=== PATIENT | male | born 1980 | race Caucasian/White ===

== ENCOUNTER 2016-07-29 20:21 | Inpatient (IN) | payer BC ==
[2016-07-29] MEDS ORDERED: NITROGLYCERINE 0.4 MG TAB SL STA (20:44)
[2016-07-29] MEDS ORDERED: ASPIRIN 325 MG TAB PO ONE (20:44)
[2016-07-29] MEDS ORDERED: NITROGLYCERINE 2 % OINTMENT PACK TOP STA (20:44)
[2016-07-29 20:54] LABS: AUTOMATED EOSINOPHIL 1.8 % (0-5); AUTOMATED NEUTROPHIL 72.2 % (45-76); MPV 8.7 fL (7.4-10.4)
--- NOTE | 2016-07-29 21:03 | EDPRACDOC ---
[id number] Seen by Provider: 07/29/16 20:40 Information Source: Patient Mode of Arrival: Car Home Medications: Home Medications No Home Medications 07/29/16 Allergies/Adverse Reactions: Allergies Allergy/AdvReac Type Severity Reaction Status Date / Time No Known Allergies Allergy Verified 08/07/14 03:33 - History of Present Illness Onset: Yesterday HPI: PT PRESENTS WITH SUBSTERNAL CHEST PAIN WITH ASSOCIATED SEVERELY ELEVATED BLOOD PRESSURES. PAIN IS WORSE WITH EXERTION. BEGAN YESTERDAY BUT INTENSIFIED WHILE MOVING AT WORK TONIGHT. Chest Pain Location: Reports: Substernal Pain Radiation: Reports: None Symptoms Occur: Reports: At Rest Cardiac Risk Factors: Reports: Smoker, Family History (FATHER AT 47 FROM [place].), Hypertension (NOT TREATED) Cardiac History of: Reports: DVT/PE Medications within 24 Hours: Reports: None Pain Worsens With: Reports: Exertion Pain Improves With: Reports: Nothing Associated Signs and Symptoms: Reports: Diaphoretic. Denies: SOB, Abdominal Pain, Nausea ED Past Medical History - History Reviewed Yes Nurses notes reviewed and agree except as marked - Patient Medical History Cardiac History: Reports: Hypertension - Social Medical History Smoking Status: Heavy tobacco smoker (5 or more cigarettes/day or daily pipe/ cigar) Lives In: Home EDM Review of Systems - Review of Systems ROS Negative Except as Marked: Yes All systems reviewed and were negative except as marked Constitutional: negative: Fever Respiratory: Shortness of Breath Cardiovascular: Chest Pain. negative: Palpitations Gastrointestinal: negative: Nausea, Pain, Vomiting - Physical Exam Constitutional: Alert Oriented to: Time, Person, Place Last recorded Vital Signs: Last Vital Signs Temp 98.1 F 07/29/16 20:23 Pulse 85 07/29/16 20:23 Resp 20 07/29/16 20:23 BP 231/127 H 07/29/16 20:23 Pulse Ox 96 07/29/16 20:23 Oxygen Pulse Oxygen Saturation 96 O2 Device Room Air Oxygen Flow Rate Fraction of Inspired Oxygen ( FIO2) - HEENT Head: negative: Deformity, Laceration Eye Exam: negative: Conjunctival Injection, Pale Conjunctiva Oropharynx: negative: Membranes Dry Nose: negative: Congestion, Discharge Neck: negative: Limited ROM - Respiratory/Cardiovascular Respiratory: Normal - CTA. negative: Accessory Muscle Use, Diminished, Tachypnea Cardiovascular: negative: Bradycardia, Tachycardia, Irregular - GI Auscultation: Normal Palpation: Normal Tenderness: Non tender - Musculoskeletal Extremities: Radial Pulse (PALPABLE) - Integumentary Skin: Warm, Dry. negative: Rash - Neurologic Memory Impaired: Normal Motor Function: Normal Mood Description: Anxious, Appropriate Thought: Coherent Perception: Normal - Action ASA given in the ED: Yes - Results 07/29/16 20:45 07/29/16 20:45 WBC 11.9 xk/uL (3.8-10.8) H 07/29/16 20:45 RBC 5.33 xM/uL (4.70-6.10) 07/29/16 20:45 Hgb 15.8 g/dL (14.0-18.0) 07/29/16 20:45 Hct 45.3 % (42-52) 07/29/16 20:45 MCV 85 fL (80-94) 07/29/16 20:45 MCH 29.5 pg (27-32) 07/29/16 20:45 MCHC 34.8 g/dl (33-36) 07/29/16 20:45 RDW 13.0 % (11.5-14.5) 07/29/16 20:45 Plt Count 247 xk/uL (130-400) 07/29/16 20:45 MPV 8.7 fL (7.4-10.4) 07/29/16 20:45 Neut % (Auto) 72.2 % (45-76) 07/29/16 20:45 Lymph % (Auto) 19.0 % (17-44) 07/29/16 20:45 [place] % (Auto) 6.0 % (3-10) 07/29/16 20:45 Eos % (Auto) 1.8 % (0-5) 07/29/16 20:45 Baso % (Auto) 1.0 % (0-2) 07/29/16 20:45 Absolute Neuts (auto) 8.57 xk/uL (1.7-8.2) H 07/29/16 20:45 Absolute Lymphs (auto) 2.26 xk/uL (0.65-4.75) 07/29/16 20:45 Lab Results 07/29/16 20:45 WBC 11.9 H RBC 5.33 Hgb 15.8 Hct 45.3 MCV 85 MCH 29.5 MCHC 34.8 RDW 13.0 Plt Count 247 MPV 8.7 Neut % (Auto) 72.2 Lymph % (Auto) 19.0 Walsh % (Auto) 6.0 Eos % (Auto) 1.8 Baso % (Auto) 1.0 Absolute Neuts (auto) 8.57 H Absolute Lymphs (auto) 2.26 Laboratory Results - last 24 hr 07/29/16 20:45 WBC 11.9 H RBC 5.33 Hgb 15.8 Hct 45.3 MCV 85 MCH 29.5 MCHC 34.8 RDW 13.0 Plt Count 247 MPV 8.7 Neut % (Auto) 72.2 Lymph % (Auto) 19.0 Walsh % (Auto) 6.0 Eos % (Auto) 1.8 Baso % (Auto) 1.0 Absolute Neuts (auto) 8.57 H Absolute Lymphs (auto) 2.26 Laboratory Results 07/29/16 20:45 - EKG EKG #1 EKG Time: 20:25 -: Yes EKG interpreted by me Rate: bpm: 85 [place]: Normal Rhythm: NSR Block: None Hypertrophy: None ST: Normal - Departure Yes I personally saw and evaluated the patient. Disposition: Admit IP To This Hospital Condition: Stable Final Diagnosis: Chest pain Qualifiers: Chest pain type: precordial pain Qualified Code(s): R07.2 - Precordial pain Hypertension Qualifiers: Hypertension type: essential hypertension Qualified Code(s): I10 - Essential ( primary) hypertension Decision to Admit Time: 22:00 Decision to admit date: 07/29/16 Decision to admit: from ED
[2016-07-29 21:07] LABS: BLOOD UREA NITROGEN 14 MG/DL (9-20); CALCULATED OSMOLALITY 278 MOs/Kg (270-290); CHLORIDE 106 mEq/L (98-107); CPK TOTAL WITH POSSIBLE MB 55 IU/L (55-170); GLUCOSE 103 MG/DL (70-99); SODIUM LEVEL 144 mEq/L (137-146); TOTAL PROTEIN 7.5 G/DL (6.3-8.2)
--- NOTE | 2016-07-29 21:40 | DIRPT ---
CLINICAL DATA: Chest pain EXAM: CHEST 2 VIEW COMPARISON: Chest x-ray dated 09/18/2005. FINDINGS: Heart size is normal. Overall cardiomediastinal silhouette is normal in size and configuration. Lungs are clear. Lung volumes are normal. Slight elevation of the right hemidiaphragm is stable. Osseous structures about the chest are unremarkable. IMPRESSION: Stable chest x-ray. Lungs are clear and there is no evidence of acute cardiopulmonary abnormality. Electronically Signed By: Carlos Lundberg M.D. On: 07/29/2016 21:37
[2016-07-29] MEDS ORDERED: LABETALOL 20 MG/4 ML SYRINGE IV STA (21:46)
[2016-07-29] MEDS ORDERED: ACETAMINOPHEN 325 MG/TAB TABLET PO ONE (21:57)
[2016-07-29] MEDS ORDERED: NITROGLYCERINE 0.4 MG TAB SL PRN (22:07)
[2016-07-29] MEDS ORDERED: SIMETHICONE 80 MG TAB PO PRN (22:07)
[2016-07-29] MEDS ORDERED: ONDANSETRON HCL 4 MG/2 ML VIAL IV PRN (22:07)
[2016-07-29] MEDS ORDERED: BENZONATATE 100 MG PERLES PO PRN (22:07)
[2016-07-29] MEDS ORDERED: ACETAMINOPHEN 650 MG SUPP PR PRN (22:07)
[2016-07-29] MEDS ORDERED: DOCUSATE-SENNA CONCENTRATE TAB PO PRN (22:07)
[2016-07-29] MEDS ORDERED: TEMAZEPAM 15 MG CAP PO PRN (22:07)
[2016-07-29] MEDS ORDERED: METOCLOPRAMIDE 10 MG/2 ML VIAL IV PRN (22:07)
--- NOTE | 2016-07-29 22:40 | HISTPHYS ---
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 He had some chest discomfort and tightness last night while he was working, but went home and went to bed. He felt all right when he awakened, so he went to work tonight, but as he was walking around, doing his job at work, the tightness in his chest came back. He felt short of breath and had a squeezing sensation in his chest. It radiated some to his throat. He had the nurse at work check his blood pressure and it was very high and they sent him to the ED for evaluation. He is a former smoker, he switched from cigarettes to vapor cigarettes in April of last year. He states that his father of a massive MS at age 41. - Medical History Cardiac History: Reports: Hypertension Respiratory History: Reports: No Significant History, Cough GI/ History: Reports: No Significant History. Denies: Gastroesophageal Reflux Musculoskeletal History: Reports: No Significant History. Denies: Osteoarthritis Systemic History: Reports: No Significant History. Denies: Diabetes, Hypothyroidism Neurological History: Reports: No Significant History Psychological History: Reports: No Significant History - Surgical History Reports: Hernia Surgery - Medictions/Allergies Allergies No Known Allergies Allergy (Verified 08/07/14 03:33) Current Medication List: Reviewed Home Medications Hydrocodone Bit/Acetaminophen [Lortab 5/325] 1 tab PO Q4H PRN #15 tab 08/07/14 Ibuprofen 800 mg PO Q8H PRN #20 tablet 08/07/14 - Family History Reports: Hypertension (Dad), Diabetes (Mom-), Cancer (Mom-throat ca), Cardiac Disorders (Dad), Respiratory Disorders (Mom-emphysema) - Social History Travel Outside of [place] in the Last 3 Months?: No Lives: Alone Smoking Status: Former smoker (using vapor cigarettes) Social History: Denies: Alcohol Use - Review of Systems Constitutional: No Symptoms Reported Eyes: No Symptoms Reported Ears: No Symptoms Reported Nose: No Symptoms Reported Mouth: No Symptoms Reported Throat/Neck: Snoring Respiratory: Cough, Shortness of Breath Cardiovascular: Chest Pain, Palpitations. negative: Cyanosis, Edema, Orthopnea , PND Gastrointestinal: Nausea. negative: Vomiting, Abdominal Pain Genitourinary: No Symptoms Reported. negative: Dysuria, Frequency, Testicular Pain, Flank Pain Neurological: Dizziness. negative: Gait Difficulty, Headache, Weakness Musculoskeletal:: No Symptoms Reported Integumentary: No Symptoms Reported Allergic/Immunologic: No Symptoms Reported Hematologic: No Symptoms Reported Endocrine: Weight Gain. negative: Heat Intolerance, Cold Intolerance, Polyuria , Diabetes, Hypothyroidism Psychiatric: No Symptoms Reported. negative: Anxiety, Depression - Physical Exam Vital Signs: Initial Vitals Temperature 98.1 F 07/29/16 20:23 Pulse Rate 85 07/29/16 20:23 Respiratory Rate 20 07/29/16 20:23 Blood Pressure 231/127 H 07/29/16 20:23 Pulse Oxygen Saturation 96 07/29/16 20:23 Constitutional: No apparent distress, Alert, Well nourished, Well appearing Oriented to: Time, Person, Place - HEENT Head: Normal Eye: Normal (PERRL: EOMI) Oropharynx: Normal. negative: Exudate, Red Tympanic Membrane: Normal ENT EAC: Normal Nose: No Symptoms Reported. negative: Bleeding, Congestion, Discharge, Deformity Respiratory: Normal - CTA Cardiovascular: Normal (regular rhythm and rate, no murmur, no S3 or S4) - GI Auscultation: Normal Palpation: Normal (soft, nondistended, no mass). negative: Enlarged liver, Enlarged spleen Tenderness: Non tender Ayon's Sign: Negative Rectal Exam: Deferred - Musculoskeletal Back: Normal Extremities: Normal, Pedal Pulse (normal), Radial Pulse (normal) Spine: normal alignment, normal inspection - Integumentary Skin: Warm, Dry Lymphatics: Normal - Neurologic Memory Impaired: Normal Motor Function: Normal Cranial Nerve: Normal Cerebellar: Normal Mood Description: Normal Thought: Coherent Perception: Normal - Focused CV Perfusion Exam Vital Signs: Last Vital Signs Temp 98.1 F 07/29/16 20:23 Pulse 73 07/29/16 21:49 Resp 18 07/29/16 21:49 BP 186/114 H 07/29/16 21:49 Pulse Ox 91 07/29/16 21:49 - Lab Results Laboratory Tests 07/29/16 07/29/16 07/29/16 20:45 20:45 20:45 WBC 11.9 H Hgb 15.8 Hct 45.3 Plt Count 247 Neut % (Auto) 72.2 Lymph % (Auto) 19.0 [place] % (Auto) 6.0 PT 10.0 INR 1.0 APTT 29.0 Sodium 144 Potassium 3.7 Chloride 106 Carbon Dioxide 26 Anion Gap 16 BUN 14 Creatinine 1.10 Estimated GFR (MDRD) > 60 Glucose 103 H Calcium 9.0 AST 27 ALT 50 Alkaline Phosphatase 125 Creatine Kinase 55 Troponin I 0.02 Total Protein 7.5 Albumin 4.4 - Diagnostic Findings CXR: IMPRESSION: Stable chest x-ray. Lungs are clear and there is no evidence of acute cardiopulmonary abnormality. Electronically Signed By: Carlos Lundberg M.D. On: 07/29/2016 21:37 EKG: normal sinus rhythm, 85 bpm, no acute ST changes - Assessment (1) Hypertensive urgency, malignant I16.0 - HYPERTENSIVE URGENCY Acute Present on Admission: Yes Will place patient in observation, begin appropriate medications for control of hypertension. Monitor BP closely per protocol. Place on telemetry, obtain serial troponins to rule out MS. (2) Chest pain R07.9 - CHEST PAIN, UNSPECIFIED Acute Present on Admission: Yes Qualifiers: Chest pain type: precordial pain Ischemic chest pain type: I Qualified Code(s): R07.2 - Precordial pain Place on telemetry, obtain serial troponins to rule out MS. Begin aspirin, statin, and beta-tori, as well as SAMANTHA-inhibitor. Monitor BP closely per protocol. Schedule for stress test to rule out acute myocardial ischemia. (3) Obesity (BMI 35.0-39.9 without comorbidity) E66.9 - OBESITY, UNSPECIFIED Acute Present on Admission: Yes Discuss need for weight loss and exercise program. (4) Tobacco abuse Z72.0 - TOBACCO USE Acute Present on Admission: Yes Encourage continued efforts at smoking cessation.
[2016-07-29] MEDS ORDERED: Pharmacy Order Set Alert SCH (23:00)
[2016-07-29] MEDS ORDERED: Vaccine Screening Complete SCH (23:00)
[2016-07-30] MEDS: ACETAMINOPHEN 325 MG/TAB TABLET PO PRN ×2 (03:17→12:51)
[2016-07-30 03:42] LABS: LDL (calc.) 75.6 MG/DL (<100); VLDL (calc.) 25.4 MG/DL (5-40)
[2016-07-30] MEDS ORDERED: PNEUMOCOCCAL 0.5 ML VIAL IM ONE (08:00)
[2016-07-30] MEDS ORDERED: hydrALAZINE 20 MG/ML VIAL IV PRN (08:33)
[2016-07-30] MEDS: hydrALAZINE 20 MG/ML VIAL IV PRN ×2 (08:57→12:13)
[2016-07-30] MEDS ORDERED: LISINOPRIL 10 MG TAB PO SCH (09:00)
[2016-07-30] MEDS ORDERED: METOPROLOL TARTRATE 50 MG TAB PO SCH (09:00)
[2016-07-30] MEDS: ASPIRIN 325 MG TAB PO SCH (10:16)
[2016-07-30] MEDS: NICOTINE 21 MG PATCH TOP SCH (10:17)
[2016-07-30] MEDS ORDERED: SESTAMIBI 8 MCI V IV ONE (11:03)
[2016-07-30] MEDS: ENALAPRILAT 1.25 MG/ML VIAL IV PRN ×2 (12:20→23:52)
[2016-07-30] MEDS ORDERED: METOPROLOL TARTRATE 50 MG TAB PO ONE (12:26)
[2016-07-30] MEDS ORDERED: AMLODIPINE 10 MG TAB PO ONE (12:27)
--- NOTE | 2016-07-30 15:44 | CAPUEKG ---
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
[2016-07-30] MEDS: MORPHINE 2 MG/ML INJECTION IV PRN (16:08)
--- NOTE | 2016-07-30 17:31 | GENMEDPROG ---
Subjective Note: Patient with extraordinarily high blood pressure we have been managing it most of the day today. He has required multiple doses of p.r.n. blood pressure medication. He is scheduled for a 2 day stress test. Notes Reviewed: Yes Events from last night noted and discussed with Clinical Staff Current Medication List: Reviewed Currently: Reports: Chest Pain. Denies: MUKHERJEE, SOB, Sputum, Abdominal Pain DVT Prophylaxis: Yes - Physical Examination Vital Signs and I&O: Last Vital Signs Temp 97.5 F 07/30/16 16:46 Pulse 74 07/30/16 16:46 Resp 20 07/30/16 16:46 BP 158/94 07/30/16 16:46 Pulse Ox 94 07/30/16 16:46 Oxygen Pulse Oxygen Saturation 94 O2 Device Room Air Oxygen Flow Rate Fraction of Inspired Oxygen ( FIO2) Intake & Output 07/27/16 07/28/16 07/29/16 07/30/16 23:59 23:59 23:59 23:59 Intake Total 120 720 Output Total 200 Balance 120 520 Patient's weight 135.312 kg 135.766 kg General: Alert, Oriented x3, No acute distress, Well appearing, Well nourished HEENT: Normal (Normocephalic, atraumatic;EOMI.Sclera white, Nares patent, without discharge or bleeding. No oropharyngeal lesions or erythema. Mucous membranes are dry.) Neck: Non-tender, Full range of motion, Normal Trachea alignment, Normal inspection (No cervical lymphadenopathy. No supraclavicular lymphadenopathy.), No Masses palpable, Supple Lymphatics: Normal Respiratory: Normal - CTA Cardiovascular: Regular rate and rhythm (No bradycardia or tachycardia), Normal S1, No Gallops,Rubs/Murmurs, Normal S2, Good Pedal Pulses (DP pulses 2+ bilaterally) GI: Normal bowel sounds (normal active sounds), Soft (non-distended), Non tender , No hepatospenomegaly, No masses Extremities/Musculoskeletal: Normal pulses (DP pulses 2+ bilaterally) Skin: Warm,Dry and Intact, No rashes, No significant lesion Neurological: Strength at 5/5 X4 ext (Motor 5/5 throughout.), Normal tone, Cranial nerves 3-12 NL ( 2-12 grossly intact.) Lab/DI/Studies Reviewed: Abnormal Lab Results 07/29/16 07/29/16 07/30/16 20:45 20:45 03:05 WBC 11.9 H Absolute Neuts (auto) 8.57 H Glucose 103 H Creatine Kinase HDL Cholesterol 27.0 L 07/30/16 07:50 WBC Absolute Neuts (auto) Glucose Creatine Kinase 46 L HDL Cholesterol - Assessment (1) Chest pain Acute R07.9 - CHEST PAIN, UNSPECIFIED Qualifiers: Chest pain type: precordial pain Ischemic chest pain type: I Qualified Code(s): R07.2 - Precordial pain Comment/Plan: Patient has ruled out for myocardial infarction. He is awaiting 2nd part of 2 day stress test. (2) Hypertensive urgency, malignant Acute I16.0 - HYPERTENSIVE URGENCY Comment/Plan: Blood pressures remain very high daily medications ordered and p.r.n. medications have been given. (3) Obesity (BMI 35.0-39.9 without comorbidity) Acute E66.9 - OBESITY, UNSPECIFIED Comment/Plan: Discuss need for weight loss and exercise program. (4) Tobacco abuse Acute Z72.0 - TOBACCO USE Comment/Plan: Encourage continued efforts at smoking cessation. - Plan Await the results of stress test. Case Care Discussed with: Patient Education/Counseling Given To: Patient Education/Counseling Given Regarding: Diagnosis, Treatment, Prognosis Total Time: 35 minutes. Critical Care: No Couseling Time (>50% in counseling/coordination): No
[2016-07-30] MEDS: METOPROLOL TARTRATE 100 MG TAB PO SCH (20:04)
[2016-07-30] MEDS ORDERED: ATORVASTATIN 20 MG TAB PO SCH (21:00)
[2016-07-30] MEDS ORDERED: AMLODIPINE 10 MG TAB PO SCH (21:00)
[2016-07-31] MEDS: hydrALAZINE 20 MG/ML VIAL IV PRN ×2 (01:22→05:45)
[2016-07-31] MEDS: MORPHINE 2 MG/ML INJECTION IV PRN (02:03)
[2016-07-31] MEDS ORDERED: MORPHINE 2 MG/ML INJECTION IV PRN (02:19)
[2016-07-31] MEDS ORDERED: METOPROLOL 5 MG/5 ML SDV IV ONE (03:00)
[2016-07-31 04:08] VITALS: BMI 37.9
[2016-07-31] MEDS: ENALAPRILAT 1.25 MG/ML VIAL IV PRN (04:37)
[2016-07-31] MEDS ORDERED: NITROGLYCERINE 2 % OINTMENT PACK TOP ONE (07:00)
[2016-07-31 08:01] VITALS: TEMP 97.4
[2016-07-31] MEDS ORDERED: hydrALAZINE 20 MG/ML VIAL IV ONE (08:30)
[2016-07-31] MEDS ORDERED: LISINOPRIL 40 MG TAB PO SCH (09:00)
[2016-07-31] MEDS: ACETAMINOPHEN 325 MG/TAB TABLET PO PRN (09:10)
[2016-07-31] MEDS ORDERED: Nitroglycerin D5W 50,000 MCG/250 ML IVBOT IV SCH (10:00)
[2016-07-31] MEDS: METOPROLOL 5 MG/5 ML SDV IV ONE ×2 (10:08→10:40)
--- NOTE | 2016-07-31 10:20 | PCM.CARDCO ---
Consultation Date: 07/31/16 Requesting Physician: Yane Bazzi Marketing Research Analyst: Werner Winn Consult Reason: Other - History of Present Illness Chest pain and abnormal stress test Chief Complaint: chest pain - Past Medical and Surgical History Cardiac History: Reports: No Significant History, Hypertension (He has never been treated) Respiratory History: Reports: No Significant History, Cough GI/ History: Reports: No Significant History. Denies: Gastroesophageal Reflux Systemic History: Reports: No Significant History. Denies: Anemia, Diabetes, Hypothyroidism Musculoskeletal History: Reports: No Significant History. Denies: Osteoarthritis Psychological History: Reports: No Significant History. Denies: Depression, Alcoholism Neurological History: Reports: No Significant History Past Surgical History: Reports: No Significant History, Hernia Surgery Allergies No Known Allergies Allergy (Verified 08/07/14 03:33) Home Medications No Home Medications 07/29/16 - Social History Travel Outside of [place] in the Last 3 Months?: No Lives: Alone Smoking Status: Former smoker (using vapor cigarettes stop cigarettes in the last month) Social History: Denies: Alcohol Use - Family History Reports: No Significant History, Hypertension (Dad), Diabetes (Mom-), Cancer ( Mom-throat ca), Cardiac Disorders (Dad in his early 40s of myocardial infarction), Respiratory Disorders (Mom-emphysema) - Review of Systems Constitutional: No Symptoms Reported - Respiratory Shortness of Breath (Exertional new occurred early in a stress treadmill EKG) - Cardiovascular Chest Pain (Chest tightness prolonged waxing and waning before admission and occurred in the treadmill at the peak of exercise requiring sublingual nitroglycerin and IV beta-tori for relief) - Physical Exam Constitutional: No apparent distress, Alert, Well nourished, Well appearing, Other (Obese BMI is close to 38, he looks older than his age, he was quite diaphoretic and anxious at the time of a stress test during recovery) Oriented to: Time, Person, Place Exam: Last Vital Signs Temp 97.4 F L 07/31/16 08:00 Pulse 80 07/31/16 08:00 Resp 20 07/31/16 08:00 BP 178/102 H 07/31/16 09:06 Pulse Ox 97 07/31/16 08:00 Intake & Output 07/30/16 07/31/16 07/31/16 23:59 07:59 15:59 Intake Total 360 Output Total 600 325 Balance -240 -325 Patient's weight 295 lb 4 oz - HEENT Head: Normal (No bruit thyromegaly or neck vein distention) Eye: Normal (PERRL: EOMI) Oropharynx: Normal. negative: Exudate, Red Tympanic Membrane: Normal ENT EAC: Normal Nose: No Symptoms Reported. negative: Bleeding, Congestion, Discharge, Deformity - Respiratory/Cardiovascular Respiratory: Diminished. negative: Rales, Rhonchi, Wheezes Cardiovascular: Normal. negative: Systolic murmur, Gallop/S3 - GI Auscultation: Normal (Obese soft nontender) Palpation: Normal (soft, nondistended, no mass). negative: Enlarged liver, Enlarged spleen Tenderness: Non tender Rectal Exam: Deferred - Musculoskeletal Back: Normal Extremities: Normal, Femoral Pulse, Pedal Pulse (normal), Radial Pulse (normal) . negative: Calf Tenderness, Clubbing, Cyanosis, Edema, Pedal Edema - Integumentary Skin: Diaphoretic (During recovery from a stress test) Lymphatics: Normal - Neurologic Memory Impaired: Normal Cerebellar: Normal Mood Description: Normal Thought: Coherent Perception: Normal - Assessment/Plan (1) Unstable angina I20.0 - UNSTABLE ANGINA Acute Present on Admission: Yes Comment: He presents with clinical unstable angina with low level nondiagnostic troponin elevation. His treadmill EKG was markedly abnormal and about the time he was injected of isotope he developed anterior ST segment elevation. Fortunately he did not developed ventricular tachycardia or ventricular fibrillation. He was given nitroglycerin twice recovery and IV beta-tori. His chest pain resolved his EKG normalized and he will be referred directly for coronary arteriography after discussing the case with my interventional partner. Options benefits risks detailed with the patient he has no dye allergy contraindication to dual anti-platelet therapy. He require ongoing treatment for hypertension. (2) Low HDL (under 40) E78.6 - LIPOPROTEIN DEFICIENCY Acute Comment: He has dyslipidemia is at risk for premature CAD, he will require statin and not on 1 all attempt to start a prior to transfer (3) Hypertension I10 - ESSENTIAL (PRIMARY) HYPERTENSION Acute essential hypertension I10 - Essential (primary) hypertension Comment: I will place him on beta-tori initially IV for blood pressure then oral and I would would benefit from an SAMANTHA-inhibitor after his coronary arteriography. Case Care Discussed with: Patient, Nursing Staff
[2016-07-31] MEDS ORDERED: LORAZEPAM 2 MG/ML VIAL IV PRN (10:25)
[2016-07-31] MEDS ORDERED: LORAZEPAM 2 MG/ML VIAL IV ONE (10:25)
[2016-07-31] MEDS ORDERED: NITROGLYCERINE 0.4 MG TAB SL PRN (10:29)
[2016-07-31] MEDS: ASPIRIN 325 MG TAB PO SCH (10:40)
[2016-07-31] MEDS: METOPROLOL TARTRATE 100 MG TAB PO SCH (10:41)
[2016-07-31] MEDS: NICOTINE 21 MG PATCH TOP SCH (10:41)
--- NOTE | 2016-07-31 11:04 | PCM.DCS92 ---
- Final/Secondary Discharge Diagnosis (1) Chest pain Acute R07.9 - CHEST PAIN, UNSPECIFIED Present on Admission: Yes precordial pain I R07.2 - Precordial pain Comment: Patient has ruled out for myocardial infarction. He is awaiting 2nd part of 2 day stress test. (2) Hypertensive urgency, malignant Acute I16.0 - HYPERTENSIVE URGENCY Present on Admission: Yes Comment: Blood pressures remain very high daily medications ordered and p.r.n. medications have been given. (3) Obesity (BMI 35.0-39.9 without comorbidity) Acute E66.9 - OBESITY, UNSPECIFIED Present on Admission: Yes Comment: Discuss need for weight loss and exercise program. (4) Tobacco abuse Acute Z72.0 - TOBACCO USE Present on Admission: Yes Comment: Encourage continued efforts at smoking cessation. Discharge Condition: Stable Physician Follow up/Referrals: None,No Provider [Family Provider] - One Week Home Medications / New Prescriptions: No Action No Home Medications 0 NA DIR #0 info Home Medications No Home Medications 07/29/16 Medications Acetaminophen (Tylenol Tablet) 650 mg PO Q6H PRN; Protocol PRN Reason: Mild Pain or Fever above 100.4 Stop: 08/12/16 16:59 Last Admin: 07/31/16 09:10 Dose: 650 mg Amlodipine Besylate (Norvasc) 10 mg PO [facility] Stop: 08/13/16 16:59 Last Admin: 07/30/16 20:04 Dose: 10 mg Comments: bp 172/62 [facility] Stop: 08/13/16 07:59 Last Admin: 07/31/16 10:40 Dose: 325 mg Atorvastatin Calcium (Lipitor) 20 mg PO [facility] Stop: 08/12/16 16:59 Last Admin: 07/30/16 20:04 Dose: 20 mg Enalaprilat (Vasotec) 0.625 mg IV Q3H PRN PRN Reason: SBP Above 160 Stop: 08/12/16 22:11 Last Admin: 07/31/16 04:37 Dose: 0.625 mg Comments: BP 172/110 Hydralazine HCl (Apresoline) 20 mg IV Q4H PRN PRN Reason: SBP Above 170 Stop: 08/12/16 22:11 Last Admin: 07/31/16 05:45 Dose: 20 mg Nitroglycerin/Dextrose (Tridil) 50,000 mcg in 250 mls @ 3 mls/hr IV Q24H FLORIDAL[facility]; 10 MCG/MIN PRN Reason: Protocol Stop: 08/14/16 09:59 Last Admin: 07/31/16 10:41 Dose: 3 mls/hr Lisinopril (Zestril) 40 mg PO DAILY [facility] Stop: 08/14/16 16:59 Last Admin: 07/31/16 08:18 Dose: 40 mg Metoprolol Tartrate (Lopressor) 100 mg PO BID [facility] Stop: 08/13/16 20:59 Last Admin: 07/31/16 10:41 Dose: Morphine Sulfate (Morphine Sulfate) 2 mg IV Q2H PRN; Protocol PRN Reason: Chest Pain or Discomfort Stop: 08/05/16 22:06 Last Admin: 07/31/16 06:47 Dose: 2 mg Nicotine (Nicoderm) 21 mg TOP Q24H FLORIDALMA Stop: 08/13/16 08:59 Last Admin: 07/31/16 10:41 Dose: Not Given Non-Admin Reason: Refused Discontinued Medications Acetaminophen (Tylenol Tablet) 650 mg PO NOW ONE Stop: 07/29/16 21:58 Last Admin: 07/29/16 21:59 Dose: 650 mg Amlodipine Besylate (Norvasc) 10 mg PO NOW ONE Stop: 07/30/16 12:28 Last Admin: 07/30/16 12:52 Dose: 10 mg Aspirin (Aspirin) 325 mg PO NOW ONE Stop: 07/29/16 20:45 Last Admin: 07/29/16 21:06 Dose: 325 mg Hydralazine HCl (Apresoline) 20 mg IV NOW ONE Stop: 07/31/16 08:31 Last Admin: 07/31/16 08:18 Dose: 20 mg Labetalol HCl (Trandate, Normodyne) 20 mg IV NOW STA Stop: 07/29/16 21:47 Last Admin: 07/29/16 21:50 Dose: 20 mg Lisinopril (Zestril) 10 mg PO DAILY [facility] Stop: 08/13/16 08:59 Last Admin: 07/30/16 10:16 Dose: 10 mg Lorazepam (Ativan) 1 mg IV NOW ONE Stop: 07/31/16 10:26 Last Admin: 07/31/16 10:35 Dose: 1 mg Metoprolol Tartrate (Lopressor) 50 mg PO BID [facility] Stop: 08/13/16 08:59 Last Admin: 07/30/16 10:16 Dose: 50 mg Metoprolol Tartrate (Lopressor) 50 mg PO NOW ONE Stop: 07/30/16 12:27 Last Admin: 07/30/16 12:51 Dose: 50 mg Metoprolol Tartrate (Lopressor) 5 mg IV NOW ONE Stop: 07/31/16 03:01 Last Admin: 07/31/16 02:36 Dose: 5 mg Metoprolol Tartrate (Lopressor) 5 mg IV NOW ONE Stop: 07/31/16 10:29 Last Admin: 07/31/16 10:40 Dose: Morphine Sulfate (Morphine Sulfate) 2 mg IV Q3H PRN; Protocol PRN Reason: Chest Pain or Discomfort Stop: 08/05/16 16:59 Last Admin: 07/31/16 02:03 Dose: 2 mg Nitroglycerin (Ntg Paste (Nitropaste)) 1 inch TOP NOW STA Stop: 07/29/16 20:45 Last Admin: 07/29/16 21:04 Dose: 1 inch Nitroglycerin (Ntg (Nitrostat Sublingual Tab)) 0.4 mg SL PRN STA Stop: 07/29/16 20:45 Last Admin: 07/29/16 21:06 Dose: 0.4 mg Nitroglycerin (Ntg (Nitrostat Sublingual Tab)) 0.4 mg SL PRN PRN; Protocol PRN Reason: Chest Pain or Discomfort Stop: 08/12/16 22:06 Last Admin: 07/31/16 02:02 Dose: 0.4 mg Nitroglycerin (Ntg Paste (Nitropaste)) 1 inch TOP NOW ONE Stop: 07/31/16 07:01 Last Admin: 07/31/16 07:31 Dose: 1 inch Pneumococcal Polyvalent Vaccine (Pneumovax-23) 0.5 ml IM .ONCE ONE Stop: 07/30/16 08:01 Last Admin: 07/30/16 12:50 Dose: 0.5 ml O2 Device: Nasal Cannula Oxygen Flow Rate: 2 Oxygen to be used after Discharge: Continuous Diet at Discharge: Heart Healthy, Low Salt Activity: As Tolerated Call Office For: Worsening Symptoms, Fever over 100.5, Pain Uncontrolled By Meds Discontinue use of:: Alcohol, All Types of Tobacco - DC Summary Notes Hospital Course Note:: Discharge summary on patient named TYLER TILLEY admitted to [facility] on 07/30/16 by Yane Bazzi MD. Date of discharge is []. Patient admitted with chest pain and had low level positive troponins. His blood pressure has been elevated throughout the hospitalization. He proceeded to stress testing today. He presents with clinical unstable angina with low level nondiagnostic troponin elevation. His treadmill EKG was markedly abnormal and about the time he was injected of isotope he developed anterior ST segment elevation. Fortunately he did not developed ventricular tachycardia or ventricular fibrillation. He was given nitroglycerin twice recovery and IV beta-tori. His chest pain resolved his EKG normalized and he will be referred directly for coronary arteriography after discussing the case with Interventional Cardiology. Options benefits risks detailed with the patient he has no dye allergy contraindication to dual anti-platelet therapy. He require ongoing treatment for hypertension Patient to transfer to [facility] for cardiac catheterization. Total Time: 45 minutes Code: 02549 (>30min.) - Physical Exam Vital Signs: Last Vital Signs Temp 97.4 F L 07/31/16 08:00 Pulse 80 07/31/16 08:00 Resp 20 07/31/16 08:00 BP 178/102 H 07/31/16 09:06 Pulse Ox 97 07/31/16 08:00 Oxygen Pulse Oxygen Saturation 97 O2 Device Nasal Cannula Oxygen Flow Rate 2 Fraction of Inspired Oxygen ( FIO2) Constitutional: No apparent distress, Alert, Well nourished, Well appearing, Other (Obese BMI is close to 38, he looks older than his age, he was quite diaphoretic and anxious at the time of a stress test during recovery) Oriented to: Time, Person, Place - HEENT Head: Normal (No bruit thyromegaly or neck vein distention) Eye: Normal (PERRL: EOMI) Oropharynx: Normal. negative: Exudate, Red Tympanic Membrane: Normal ENT EAC: Normal Nose: No Symptoms Reported. negative: Bleeding, Congestion, Discharge, Deformity - Respiratory/Cardiovascular Respiratory: Diminished. negative: Rales, Rhonchi, Wheezes Cardiovascular: Normal. negative: Systolic murmur, Gallop/S3 - GI Auscultation: Normal (Obese soft nontender) Palpation: Normal (soft, nondistended, no mass). negative: Enlarged liver, Enlarged spleen Tenderness: Non tender Rectal Exam: Deferred - Musculoskeletal Back: Normal Extremities: Normal, Femoral Pulse, Pedal Pulse (normal), Radial Pulse (normal) . negative: Calf Tenderness, Clubbing, Cyanosis, Edema, Pedal Edema - Integumentary Skin: Diaphoretic (During recovery from a stress test) Lymphatics: Normal - Neurologic Memory Impaired: Normal Cerebellar: Normal Mood Description: Normal Thought: Coherent Perception: Normal - Other Exam Other Exam Findings: Laboratory Tests 07/29/16 07/29/16 07/29/16 20:45 20:45 20:45 WBC 11.9 H RBC 5.33 Hgb 15.8 Hct 45.3 MCV 85 MCH 29.5 MCHC 34.8 RDW 13.0 Plt Count 247 MPV 8.7 Neut % (Auto) 72.2 Lymph % (Auto) 19.0 [place] % (Auto) 6.0 Eos % (Auto) 1.8 Baso % (Auto) 1.0 Absolute Neuts (auto) 8.57 H Absolute Lymphs (auto) 2.26 PT 10.0 INR 1.0 APTT 29.0 Sodium 144 Potassium 3.7 Chloride 106 Carbon Dioxide 26 Anion Gap 16 BUN 14 Creatinine 1.10 Estimated GFR (MDRD) > 60 Glucose 103 H Calculated Osmolality 278 Calcium 9.0 Total Bilirubin 0.5 AST 27 ALT 50 Alkaline Phosphatase 125 Creatine Kinase 55 Troponin I 0.02 Total Protein 7.5 Albumin 4.4 Triglycerides Cholesterol LDL Cholesterol, Calc VLDL Cholesterol, Calc HDL Cholesterol Cholesterol/HDL Ratio 07/29/16 07/30/16 07/30/16 23:50 03:05 03:05 WBC RBC Hgb Hct MCV MCH MCHC RDW Plt Count MPV Neut % (Auto) Lymph % (Auto) [place] % (Auto) Eos % (Auto) Baso % (Auto) Absolute Neuts (auto) Absolute Lymphs (auto) PT INR APTT Sodium Potassium Chloride Carbon Dioxide Anion Gap BUN Creatinine Estimated GFR (MDRD) Glucose Calculated Osmolality Calcium Total Bilirubin AST ALT Alkaline Phosphatase Creatine Kinase Troponin I 0.08 0.08 Total Protein Albumin Triglycerides 127 Cholesterol 128 LDL Cholesterol, Calc 75.6 VLDL Cholesterol, Calc 25.4 HDL Cholesterol 27.0 L Cholesterol/HDL Ratio 4.7 07/30/16 07:50 WBC RBC Hgb Hct MCV MCH MCHC RDW Plt Count MPV Neut % (Auto) Lymph % (Auto) [place] % (Auto) Eos % (Auto) Baso % (Auto) Absolute Neuts (auto) Absolute Lymphs (auto) PT INR APTT Sodium Potassium Chloride Carbon Dioxide Anion Gap BUN Creatinine Estimated GFR (MDRD) Glucose Calculated Osmolality Calcium Total Bilirubin AST ALT Alkaline Phosphatase Creatine Kinase 46 L Troponin I 0.05 Total Protein Albumin Triglycerides Cholesterol LDL Cholesterol, Calc VLDL Cholesterol, Calc HDL Cholesterol Cholesterol/HDL Ratio CHEST 2 VIEW COMPARISON: Chest x-ray dated 09/18/2005. FINDINGS: Heart size is normal. Overall cardiomediastinal silhouette is normal in size and configuration. Lungs are clear. Lung volumes are normal. Slight elevation of the right hemidiaphragm is stable. Osseous structures about the chest are unremarkable. IMPRESSION: Stable chest x-ray. Lungs are clear and there is no evidence of acute cardiopulmonary abnormality. Electronically Signed By: Carlos Lundberg M.D. On: 07/29/2016 21:37
[2016-07-31] MEDS ORDERED: NITROGLYCERIN SL PRN (11:05)
[2016-07-31] MEDS ORDERED: NITROGLYCERINE 2 % OINTMENT PACK TOP SCH (12:00)
[2016-07-31 12:32] VITALS: BP 190/116; PULSE 96
--- NOTE | 2016-07-31 15:55 | PCM.STRESS ---
This is a treadmill stress Cardiolite test. The patient did not have stress images performed as he was referred for urgent heart catheterization. The resting heart rate and blood pressure, 86 beats per minute 160/110. The peak heart rate and blood pressure, 125 beats per minute 194/118. The resting EKG shows sinus rhythm and normal. The stress EKG was markedly abnormal with ST segment elevation in leads V2 V3 and V4 prompting termination of the stress test referral for coronary angiography. The patient was stressed by the Stevie protocol 2 minutes 5 seconds stage II achieving 67% of the maximum predicted heart rate of 184 beats per minute and 5.7 Mets. The exercise tolerance is fair. The blood pressure response is normal, baseline hypertension is noted. The rhythm is sinus, there is no arrhythmia. Symptoms include typical exertional angina and shortness of breath, patient required 2 administrations of nitroglycerin as well as IV metoprolol 10 mg during recovery for resolution of symptoms and ST segment elevation. The radiologist will generate the resting Cardiolite image report.
--- NOTE | 2016-07-31 16:12 | CAPUEKG ---
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
--- NOTE | 2016-07-31 16:13 | CAPUEKG ---
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
--- NOTE | 2016-07-31 16:16 | DIRPT ---
CLINICAL DATA: 36-year-old male with chest pain. ST elevation developed on the treadmill at the same time as the stress radiotracer was injected. No stress images were obtained as the patient was taken directly to the produce laborer. EXAM: MYOCARDIAL IMAGING WITH SPECT (REST AND EXERCISE) GATED LEFT VENTRICULAR WALL MOTION STUDY LEFT VENTRICULAR EJECTION FRACTION TECHNIQUE: Standard myocardial SPECT imaging was performed after resting intravenous injection of 8 mCi Tc-99m sestamibi. Subsequently, exercise tolerance test was performed by the patient under the supervision of the Cardiology staff. At peak-stress, 25 mCi Tc-99m sestamibi was injected intravenously and standard myocardial SPECT imaging was performed. Quantitative gated imaging was also performed to evaluate left ventricular wall motion, and estimate left ventricular ejection fraction. COMPARISON: None. FINDINGS: Rest only images demonstrate normal-appearing left ventricular myocardium. IMPRESSION: Normal appearing left ventricular myocardium at rest. The patient developed ST elevation during the course of the examination and was taken directly to the produce laborer. No stress perfusion images were obtained. Electronically Signed By: Zay Douglas M.D. On: 07/31/2016 16:13
== END 2016-07-31 11:05 | disposition short-term general hospital (02) | DRG 311 ==
LOC: ED 20:21 → PCU 22:10 → OBSVTOIN 07-30 17:30
PROVIDERS: ADMIT Family Medicine; ATTEND Hospitalist
DX: I20.0 Unstable angina (principal); E78.6 Lipoprotein deficiency; I16.0 Hypertensive urgency; E66.9 Obesity, unspecified; F17.210 Nicotine dependence, cigarettes, uncomplicated; Z68.36 Body mass index [BMI] 36.0-36.9, adult; Z23 Encounter for immunization
CPT/HCPCS: 36415; 71020; 78451; 78452; 80053; 80061; 82550; 84484; 85025; 85610; 85730; 90471; 90732; 93005; 93017; 96374; 99285; A9500; G0378; J0360; J2060; J2270; J3490